=== PATIENT | female | born 1990 | race Caucasian/White ===

== ENCOUNTER → 2017-12-17 12:26 | Outpatient (CLI) | payer BC ==
[2015-08-16 07:29] VITALS: BMI 46.5
[~2017-12-17 12:26] MED LIST: HYDROCODONE-APA1 TAB PO; IBUPROFEN600 MG PO; MOTRIN600 MG PO; PERCOCET 5-3251 TAB PO; PERCOCET 5/3251 TA1 PO; PRENATAL AD TAB1 TAB PO
== END | disposition home or self-care (01) ==
LOC: D.CT 12:26
DX: R10.9 Unspecified abdominal pain (principal)

== ENCOUNTER → 2019-06-04 08:03 | Outpatient (CLI) | payer BC ==
[2015-08-16 07:29] VITALS: BMI 46.5
== END | disposition home or self-care (01) ==
LOC: D.HCCECHO 08:03
PROVIDERS: ATTEND Internal Medicine Cardiovascular Disease
DX: R07.9 Chest pain, unspecified (principal)